=== PATIENT | male | born 1990 | race Caucasian/White ===

== ENCOUNTER 2017-10-28 10:50 | Emergency (ER) | payer MEDICAID, OTHER ==
[2017-10-28 11:04] VITALS: RESP 18; TEMP 97.9
[2017-10-28 11:53] LABS: % IMMATURE GRANULYOCYTES 0.4 % (0.0-1.1); ABSOLUTE IMMATURE GRANULOCYTES 0.06 10^3/uL (0.00-0.10); ADD DIFF? NO; ADD MORPH? NO; ADD SCAN? NO; ATYPICAL LYMPHOCYTE FLAG 0 (0-99); FRAGMENT RBC FLAG 0 (0-99); HEMATOCRIT 44.2 % (40.0-51.0); HEMOGLOBIN 16.2 g/dL (13.7-17.5); LEFT SHIFT FLG 0 (0-99); LIPEMIA HEMOLYSIS FLAG 90 (0-99); MEAN CELL HEMOGLOBIN 32.3 pg (27.9-34.1); MEAN CELL HEMOGLOBIN CONCENTR. 36.7 g/dL (32.4-36.7); MEAN CELL VOLUME 88.2 fL (81.5-99.8); MEAN PLATELET VOLUME 9.3 fL (8.7-11.7); PLATELET CLUMPS FLAG 10 (0-99); PLATELET COUNT 252 10^3/uL (150-400); RED BLOOD CELL COUNT 5.01 10^6/uL (4.40-6.38)
[2017-10-28 11:59] LABS: ANION GAP 13 mEq/L (8-16); CALCIUM 10.3 mg/dL (8.5-10.4); CARBON DIOXIDE 25 mEq/l (22-31); CHLORIDE 99 mEq/L (97-110); CREATININE 0.9 mg/dL (0.7-1.3); GLOMERULAR FILTRATION RATE > 60; GLUCOSE 108 mg/dL (70-100); SODIUM 137 mEq/L (134-144)
[2017-10-28] MEDS ORDERED: KETOROLAC 30 MG/1 ML SDV IVP ONE (12:02)
--- NOTE | 2017-10-28 12:02 | EDPHY ---
H & P Stated Complaint: Left flank pain Source: Patient - Personal History Current Tetanus/Diphtheria Vaccine: Unsure Current Tetanus Diphtheria and Acellular Pertussis (TDAP): Unsure - Medical/Surgical History Hx Asthma: Yes Hx Chronic Respiratory Disease: No Hx Diabetes: No Hx Cardiac Disease: No Hx Renal Disease: No Hx Cirrhosis: No Hx Alcoholism: No Hx HIV/AIDS: No Hx Splenectomy or Spleen Trauma: No Other PMH: PMH: asthma. PSH: - Social History Smoking Status: Never smoked Time Seen by Provider: 10/28/17 12:01 HPI/ROS: CHIEF COMPLAINT: Left flank pain HISTORY OF PRESENT ILLNESS: The patient presents to the ED with acute left flank pain. The patient's symptoms began in the evening. He had associated nausea with 1 episode of loose stool. The patient was seen at the hospital [facility] and referred to the ED for further evaluation. The patient currently reports his pain is an 8/10. It is worsened with movement. He states he is unable to find a position of comfort. The patient felt completely normal yesterday. He denies any antecedent hematuria or dysuria. The patient has no prior history of nephrolithiasis. REVIEW OF SYSTEMS: A comprehensive 10 point review of systems is otherwise negative aside from elements mentioned in the history of present illness. (Eric Aiken) - Physical Exam Exam: General Appearance: Alert, mild discomfort secondary to pain Eyes: Pupils equal and round no pallor or injection ENT, Mouth: Mucous membranes moist Respiratory: There are no retractions, lungs are clear to auscultation Cardiovascular: Regular rate and rhythm Gastrointestinal: Tenderness to palpation in the left upper quadrant, left flank tenderness, normal bowel sounds, no peritoneal signs Neurological: A&O, normal motor function, normal sensory exam, normal cranial nerves Skin: Warm and dry, no rashes Musculoskeletal: Neck is supple nontender Extremities: symmetrical, full range of motion (Eric Aiken) Constitutional: Initial Vital Signs Temperature (C) 36.6 C 10/28/17 11:01 Heart Rate 74 10/28/17 11:01 Respiratory Rate 18 10/28/17 11:01 Blood Pressure 131/76 H 10/28/17 11:01 O2 Sat (%) 98 10/28/17 11:01 O2 Delivery Mode Room Air Allergies/Adverse Reactions: No Known Allergies Allergy (Unverified 10/28/17 11:04) Home Medications: Medication Instructions Recorded Ciprofloxacin [Cipro] 500 mg PO BID #6 tab 10/28/17 Hydrocodone/APAP 5/325 [Mondamin 1 - 2 tab PO Q4H PRN #7 tab 10/28/17 5/325 (RX)] Medical Decision Making - Diagnostics Imaging Results: Imaging Impressions Abdomen/Pelvis CT 10/28/17 12:21 Impression: 1. No renal obstruction. 2. No renal stones. 3. Prerenal space perinephric fat stranding and free fluid. Could the patient have pancreatitis? 4. No gallstones. No biliary obstruction. Findings and recommendations discussed with Dr. Eric Aiken at 1311 hour, 10/28/2017. Final report concurs with initial preliminary interpretation. Attention: This examination does not use radiographic contrast, and as such, provides only a limited evaluation of the abdomen, pelvis, and retroperitoneum. If there is further clinical suspicion for pathological conditions, a complete CT evaluation of the abdomen and pelvis utilizing intravenous, oral, and rectal contrast should be considered. Abdomen CT 10/28/17 14:48 Impression: 1. Left mesenteric and retroperitoneal stranding associated with mild apparent circumference thickening of the descending colon, suspicious for colitis. 2. Indeterminate hypodensity in the liver, statistically likely to be benign given the patient's age, however, MR abdomen with contrast may be useful for further evaluation. 3. Constipation. 4. Additional findings as above. Findings discussed with Dr. Caio Lopez, 10/28/2017 at 15:37. ED Course/Re-evaluation: The patient presents to the ED with acute left flank pain. The patient had an IV established. Once I verified a normal creatinine the patient was given 30 mg of Toradol. Given the patient's complaints of acute pain he was taken for a CT scan of the abdomen pelvis for further evaluation of his symptoms. CT scan of the abdomen pelvis demonstrates no evidence of obvious ureterolithiasis or nephrolithiasis. The patient does have some nonspecific stranding noted in his pre renal space on the left side. I reassessed the patient at 3:00 p.m.. He is noted to [place] [id number]. He continues to have mild ongoing pain and tenderness. I reviewed his case with Dr. Javier Hernandez from General Surgery. He recommends CT scan with contrast for further characterization of the findings. (Eric Aiken) Differential Diagnosis: Differential diagnosis considered includes nephrolithiasis, ureterolithiasis, pyelonephritis, gastroenteritis, perforation, obstruction, pancreatitis, peptic ulcer disease (Eric Aiken) Other Provider: We discussed the CT results. The patient was reassured. I also discussed them with Dr. Javier Hernandez who was involved with the patient care. On my exam the patient denies having any pain. He has not had any vomiting or diarrhea in the last several hours. His abdominal exam is benign to deep palpation. We discussed options including admission versus going home and following up in 24 hr. The patient and his would much prefer going home. I believe that this is reasonable considering his well appearance. He denies any recent antibiotic use or travel. We also discussed the 1.3 cm liver abnormality and follow-up MRI. (Caio Lopez) - Data Points Laboratory Results: Laboratory Results 10/28/17 11:25 10/28/17 11:25 10/28/17 10/28/17 10/28/17 12:20 11:25 11:25 WBC RBC Hgb Hct MCV MCH MCHC RDW Plt Count MPV Neut % (Auto) Lymph % (Auto) [place] % (Auto) Eos % (Auto) Baso % (Auto) Nucleat RBC Rel Count Absolute Neuts (auto) Absolute Lymphs (auto) Absolute Monos (auto) Absolute Eos (auto) Absolute Basos (auto) Absolute Nucleated RBC Immature Gran % Immature Gran # Sodium 137 mEq/L mEq/L (134-144) Potassium 4.0 mEq/L mEq/L (3.5-5.2) Chloride 99 mEq/L mEq/L (97-110) Carbon Dioxide 25 mEq/l mEq/l (22-31) Anion Gap 13 mEq/L mEq/L (8-16) BUN 9 mg/dL mg/dL (7-23) Creatinine 0.9 mg/dL mg/dL (0.7-1.3) Estimated GFR > 60 Glucose 108 mg/dL H mg/dL (70-100) Calcium 10.3 mg/dL mg/dL (8.5-10.4) Total Bilirubin 0.6 mg/dL mg/dL (0.1-1.4) Conjugated Bilirubin 0.3 mg/dL mg/dL (0.0-0.5) Unconjugated Bilirubin 0.3 mg/dL mg/dL (0.0-1.1) AST 22 IU/L IU/L (17-59) ALT 35 IU/L IU/L (21-72) Alkaline Phosphatase 78 IU/L IU/L (38-126) Total Protein 7.2 g/dL g/dL (6.3-8.2) Albumin 4.6 g/dL g/dL (3.5-5.0) Lipase 291 IU/L IU/L (23-300) Urine Color YELLOW Urine Appearance CLEAR Urine pH 7.0 (5.0-7.5) Ur Specific [place] 1.018 (1.002-1.030) Urine Protein NEGATIVE (NEGATIVE) Urine Ketones TRACE H (NEGATIVE) Urine Blood NEGATIVE (NEGATIVE) Urine Nitrate NEGATIVE (NEGATIVE) Urine Bilirubin NEGATIVE (NEGATIVE) Urine Urobilinogen NEGATIVE EU EU (0.2-1.0) Ur Leukocyte Esterase NEGATIVE (NEGATIVE) Urine Glucose NEGATIVE (NEGATIVE) 10/28/17 11:25 WBC 14.86 10^3/uL H 10^3/uL (3.80-9.50) RBC 5.01 10^6/uL 10^6/uL (4.40-6.38) Hgb 16.2 g/dL g/dL (13.7-17.5) Hct 44.2 % % (40.0-51.0) MCV 88.2 fL fL (81.5-99.8) MCH 32.3 pg pg (27.9-34.1) MCHC 36.7 g/dL g/dL (32.4-36.7) RDW 12.0 % % (11.5-15.2) Plt Count 252 10^3/uL 10^3/uL (150-400) MPV 9.3 fL fL (8.7-11.7) Neut % (Auto) 89.4 % H % (39.3-74.2) Lymph % (Auto) 5.1 % L % (15.0-45.0) [place] % (Auto) 5.0 % % (4.5-13.0) Eos % (Auto) 0.0 % L % (0.6-7.6) Baso % (Auto) 0.1 % L % (0.3-1.7) Nucleat RBC Rel Count 0.0 % % (0.0-0.2) Absolute Neuts (auto) 13.28 10^3/uL H 10^3/uL (1.70-6.50) Absolute Lymphs (auto) 0.76 10^3/uL L 10^3/uL (1.00-3.00) Absolute Monos (auto) 0.74 10^3/uL 10^3/uL (0.30-0.80) Absolute Eos (auto) 0.00 10^3/uL L 10^3/uL (0.03-0.40) Absolute Basos (auto) 0.02 10^3/uL 10^3/uL (0.02-0.10) Absolute Nucleated RBC 0.00 10^3/uL 10^3/uL (0-0.01) Immature Gran % 0.4 % % (0.0-1.1) Immature Gran # 0.06 10^3/uL 10^3/uL (0.00-0.10) Sodium Potassium Chloride Carbon Dioxide Anion Gap BUN Creatinine Estimated GFR Glucose Calcium Total Bilirubin Conjugated Bilirubin Unconjugated Bilirubin AST ALT Alkaline Phosphatase Total Protein Albumin Lipase Urine Color Urine Appearance Urine pH Ur Specific [place] Urine Protein Urine Ketones Urine Blood Urine Nitrate Urine Bilirubin Urine Urobilinogen Ur Leukocyte Esterase Urine Glucose Medications Given: Discontinued Medications Ciprofloxacin (Cipro) 500 mg PO EDNOW ONE PRN Reason: Protocol Stop: 10/28/17 16:02 Last Admin: 10/28/17 16:11 Dose: 500 mg Sodium Chloride (Ns) 1,000 mls @ 0 mls/hr IV ONCE ONE PRN Reason: Wide Open Stop: 10/28/17 12:39 Last Admin: 10/28/17 12:39 Dose: 1,000 mls Ketorolac Tromethamine (Toradol) 30 mg IVP EDNOW ONE Stop: 10/28/17 12:03 Last Admin: 10/28/17 12:05 Dose: 30 mg Departure - Departure Disposition: Home, Routine, Self-Care Clinical Impression: Colitis Condition: Fair Instructions: Colitis (ED) Additional Instructions: You have a 1.3 cm liver abnormality that is likely a benign hemangioma. We recommend follow-up with your primary for an MRI to further evaluate. Referrals: [facility] [Other] - As per Instructions Prescriptions: Ciprofloxacin [Cipro] 500 mg PO BID #6 tab Hydrocodone/APAP 5/325 [Mondamin 5/325 (RX)] 1 - 2 tab PO Q4H PRN #7 tab PRN Reason: Pain, Moderate
[2017-10-28] MEDS ORDERED: NS 1,000 ML IV ONE (12:38)
[2017-10-28 12:51] LABS: COLOR YELLOW; LEUKOCYTE ESTERASE,URINE NEGATIVE (NEGATIVE); NITRITE,URINE NEGATIVE (NEGATIVE)
[2017-10-28 13:42] LABS: ALBUMIN 4.6 g/dL (3.5-5.0); BILIRUBIN,TOTAL 0.6 mg/dL (0.1-1.4); BILIRUBIN-CONJUGATED 0.3 mg/dL (0.0-0.5); BILIRUBIN-UNCONJUGATED 0.3 mg/dL (0.0-1.1); TOTAL PROTEIN 7.2 g/dL (6.3-8.2)
[2017-10-28] MEDS ORDERED: IOPAMIDOL (ISOVUE-300) 100 ML BTL ONE (15:07)
[2017-10-28] MEDS ORDERED: CIPROFLOXACIN 500 MG TAB PO ONE (16:01)
[2017-10-28 16:13] VITALS: BP 127/71; PULSE 62; O2SAT 98
== END 2017-10-28 16:26 | disposition home or self-care (01) ==
DX: K52.9 Noninfective gastroenteritis and colitis, unspecified (principal); J45.909 Unspecified asthma, uncomplicated
CPT/HCPCS: 96374; J1885; Q9967